=== PATIENT | male | born 1990 | race Caucasian/White ===

== ENCOUNTER 2020-07-02 16:43 | Emergency (ER) | payer OTHER ==
[~2020-07-02] VITALS: Ht 185.4 cm; Wt 90.9 kg
[2020-07-02 16:52] VITALS: BP 157/92; Ht 185.4 cm; Wt 90.9 kg
[2020-07-02] MEDS ORDERED: HYDROCODON-ACE1 EA10 PO (20:11)
== END 2020-07-02 18:31 | disposition left against medical advice (07) ==
LOC: D.ER 16:43
DX: S99.922A Unspecified injury of left foot, initial encounter (principal); Z53.21 Procedure and treatment not carried out due to patient leaving prior to being seen by health care provider

== ENCOUNTER 2020-07-02 19:33 | Emergency (ER) | payer OTHER ==
[~2020-07-02] VITALS: Ht 185.4 cm; Wt 90.9 kg
[2020-07-02 19:42] VITALS: Ht 185.4 cm; Wt 90.9 kg
[2020-07-02] MEDS ORDERED: HYDROCODON-ACE1 EA10 PO (20:11)
[2020-07-02 21:15] VITALS: BP 143/89
== END 2020-07-02 21:15 | disposition home or self-care (01) ==
LOC: D.ER 19:33
DX: M79.672 Pain in left foot (principal); S92.302A Fracture of unspecified metatarsal bone(s), left foot, initial encounter for closed fracture; X58.XXXA Exposure to other specified factors, initial encounter